=== PATIENT | female | born 1965 | race Caucasian/White ===

== ENCOUNTER 2020-11-14 07:59 | Day surgery (SDC) | payer OTHER ==
[2020-11-14 08:10] LABS: Absolute Lymphocytes (CBC) 1.9 K/uL (0.7-4.9); Basophils % 1.1 % (0-1.3); Hematocrit 39.4 % (36.0-45.0); Lymphocytes % 25.5 % (15.3-44.8); MPV 7.7 fL (7.6-11.3); RBC Red Blood Cell Count 4.39 M/uL (3.86-4.86)
[2020-11-14 08:12] LABS: Urine Appearance CLEAR (Clear); Urine Bilirubin NEGATIVE (Negative); Urine Blood NEGATIVE (Negative); Urine Color YELLOW (Yellow); Urine Glucose NEGATIVE (Negative); Urine Protein NEGATIVE (Negative); Urine Specific Gravity 1.015 (1.005-1.030); Urine Urobilinogen 0.2 mg/dL (0.2-1.0); Urine pH 6.5 (5.0-7.0)
[2020-11-14 08:20] LABS: Urine Microscopic Reflex NO UMIC
[2020-11-14] MEDS ORDERED: SCOPOLAMINE HYDROBROMIDE PATCH TD ONE (08:23)
[2020-11-14] MEDS ORDERED: CEFAZOLIN/SWI 1gm 1 GM/10 ML SYR ONE (08:23)
[2020-11-14] MEDS ORDERED: Ringers Lactate 1,000 ML IV ONE ×3 (08:23→16:56)
[2020-11-14] MEDS ORDERED: propofoL 200 MG/20 ML VIAL IV ONE (08:32)
[2020-11-14] MEDS ORDERED: dexAMETHasone 10 MG/ML VIAL ONE (08:33)
[2020-11-14] MEDS ORDERED: MIDAZOLAM HCL 2 MG/2 ML INJ ONE (08:33)
[2020-11-14] MEDS ORDERED: ONDANSETRON 4 MG/2 ML VIAL ONE ×4 (08:33→19:31)
[2020-11-14] MEDS ORDERED: FENTANYL CITR 250 MCG/5 ML ONE (08:33)
[2020-11-14] MEDS ORDERED: LIDOCAINE 1% MPF 5 ML VIAL ONE (08:33)
[2020-11-14] MEDS ORDERED: VECURONIUM 10 MG/VIAL IV ONE ×2 (08:33→08:37)
[2020-11-14] MEDS ORDERED: NS 0.9% VIAL 10 ML ONE ×2 (08:33→11:22)
--- NOTE | 2020-11-14 08:37 | RAD REPORT ---
EXAM DESCRIPTION: RAD - Chest Pa And Lat (2 Views) - 11/14/2020 7:58 am CLINICAL HISTORY: preop, patient pending breast surgery COMPARISON: None TECHNIQUE: Frontal and lateral views of the chest were obtained. FINDINGS: The lungs are clear. Heart size is normal and central vasculature is within normal limit s. No pleural effusion or pneumothorax seen. No acute bony finding noted. No aortic abnormality. IMPRESSION: No acute cardiopulmonary process.
[2020-11-14] MEDS ORDERED: CELECOXIB 100 MG CAPSULE ONE (08:42)
[2020-11-14] MEDS ORDERED: ACETAMINOPHEN 500 MG TAB ONE (08:43)
[2020-11-14] MEDS ORDERED: EPINEPHRINE/PF 1 MG/ML AMP ONE ×2 (08:45→11:04)
[2020-11-14] MEDS ORDERED: NA CHLORIDE 0.9% 2,000 ML ONE (08:45)
[2020-11-14] MEDS ORDERED: Mastisol Adhesive Liq ONE (08:45)
[2020-11-14] MEDS ORDERED: NS 0.9% VIAL 40 ML ONE (08:45)
[2020-11-14] MEDS ORDERED: CEFAZOLIN SODIUM 1 GM/VIAL ONE (08:45)
[2020-11-14] MEDS ORDERED: GENTAMICIN SULF 80 MG/2ML INJ ONE (08:45)
[2020-11-14] MEDS ORDERED: LIDOCAINE 1% W/EPI 1:100,000 MDV 20 ML VIAL ONE (08:45)
[2020-11-14] MEDS ORDERED: BACITRACIN 50000 UNIT VIAL ONE (08:46)
[2020-11-14] MEDS ORDERED: LIDOCAINE 1% W/EPI 1:100,000 10 ML VIAL ONE (10:11)
--- NOTE | 2020-11-14 10:26 | EKG ---
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
[2020-11-14] MEDS ORDERED: KETOROLAC 30 MG/ML INJ ONE ×3 (10:40→16:49)
[2020-11-14] MEDS ORDERED: EPHEDRINE SULF 50 MG/ML VIAL ONE (11:22)
[2020-11-14] MEDS ORDERED: ROCURONIUM 50 MG/5 ML VIAL IV ONE (12:07)
[2020-11-14] MEDS ORDERED: FENTANYL CITR 100 MCG/2 ML ONE (15:07)
[2020-11-14] MEDS ORDERED: GLYCOPYRROLATE 0.2 MG/ML SYR ONE (15:40)
[2020-11-14] MEDS ORDERED: NEOSTIGMINE 1 MG/ML -5 ML ONE (15:41)
[2020-11-14] MEDS ORDERED: MORPHINE 10 MG/ML VIAL ONE ×2 (15:48→16:25)
[2020-11-14] MEDS ORDERED: CODEINE 30MG/APAP 300MG TAB ONE (18:40)
[2020-11-14 18:51] VITALS: BP 115/74; TEMP 97.4; O2SAT 99
[2020-11-14] MEDS ORDERED: ONDANSETRON 4 MG/2 ML VIAL IV ONE (19:15)
--- NOTE | 2020-11-15 02:38 | OP ---
Surgeon: Monty Ndiaye MD Preoperative Diagnosis: Breast enlargement and descent, lipodystrophy of the abdomen, flanks. Postoperative Diagnosis: Breast enlargement and descent, lipodystrophy of the abdomen, flanks. Procedure Performed: Breast lift and reduction, liposuction of abdomen and flanks. Anesthesia: General. Operative Note: After satisfactory induction of general anesthesia, the chest was prepped with DuraPrep and dry sterile drapes applied in the usual manner. A cm template was used to outline the right areola. Then a transverse curvilinear incision was made. Intervening skin was de-epithelialized with dermabrader. Then a transverse incision was made cephalad. Dissection was proceeded down. The flap was thinned to 1.4 cm, elevated towards the sternum, clavicle, anterior axillary line. After this was done, then the inferior incision was made and the patient then underwent conization with 2-0 PDS suture. Once this was done, straps were elevated at 12 o'clock, 1:30 and 3 o'clock position on the right breast. Then the straps were woven in and out of the pectoralis muscle back to base of cone, back to pectoral muscle, back to base and cone, and tied to themselves with 2-0 PDS sutures. This was done for the 12 o'clock, 1:30 and 3 o'clock. Strap was sewn over the sternum at 3 o'clock position with 2-0 Ethibond. Mirror image was done on opposite side. We then returned to the right side, irrigated with antibiotic solution and then placed the 10 PRIETO drain and closed the wound with 3-0 Vicryl and the dog ears were marked out laterally. Then the wound was closed with 3-0 PDS running subcuticular tied in the vertical meridian of the breast. Left side was done in mirror manner. The patient was sat up. Site for new nipple-areolar complex was marked out. 5 cm template was used. Tissue was cored out. Nipple areolar complex delivered, sewn with interrupted 4-0 PDS followed by 4-0 PDS running subcuticular. Dressings were applied . The patient was re-prepped on opposite side to axilla- nipples and posteriorly. Then, sterile drapes were placed. Incision was made in the right upper chest near the incision of the breast, left chest, then the supraumbilical region and then anterior iliac spine bilaterally. Liposuction was performed, 550 in right breast, 100 in left lateral breast, 150 in the right flank, 650 in left flank, 550 in right lower abdomen. The liposuction was performed with 4.5 mm cannula, 750 of the upper abdomen, 125 of the right lateral breast, 125 left lateral breast, 5 in the right flank, 5 in left flank 5 in the right lower abdomen, 5 in left lower abdomen. The supraumbilical wound and the wound to the breast were closed with 4-0 PDS suture. The other 2 were left open. The patient had liposuction garment applied, and tincture of benzoin, Steri-Strips were applied over the chest, followed by an of laws fluffs and Jeremias wrap. The patient Esmarch, fluffs, and Jeremias wrap. The patient tolerated procedure well. Estimated blood loss 300 cc. The amount of tissue removed from the right breast was 216, left breast was 58 g. JOSEPHINE/DUANE Voice ID: [id number] Report ID: [id number] [facility]
== END 2020-11-14 19:50 | disposition home or self-care (01) ==
LOC: OR 07:59
PROVIDERS: ATTEND Specialist
PROC: 0HSV0ZZ Reposition Bilateral Breast, Open Approach (ICD-10-PCS; principal; 2020-11-14 09:00)
PROC: 0J083ZZ Alteration of Abdomen Subcutaneous Tissue and Fascia, Percutaneous Approach (ICD-10-PCS; 2020-11-14 09:00)
DX: N64.81 Ptosis of breast (principal); E65 Localized adiposity
CPT/HCPCS: 93005; 85025; 36415; 88305; 81003; 71046; 19316; 15877; J2704; J0171 ×2; J1580; J2250; J3010 ×2; J1100; J0690 ×2; J7120 ×3; J7030; J2405 ×5; J2710